=== PATIENT | female | born 1940 | race Native Hawaiian/Other Pacific Islander ===

== ENCOUNTER 2018-06-17 13:19 | Emergency (ER) | payer MEDICARE ==
[2018-06-17 15:14] LABS: BASO # 0.2 K/uL (0.0-0.2); BASO % 1.2 % (0.0-2.0); EOS # 0.1 K/uL (0.0-0.7); EOS % 0.8 % (0.0-4.0); HEMOGLOBIN 14.2 g/dL (11.0-16.0); LYMPH # 2.4 K/uL (1.0-4.3); LYMPH % 17.3 % (20.0-40.0); MEAN CELL VOLUME 96.2 fL (81.0-99.0); MEAN CORPUSCULAR HEMOGLOBIN 32.4 pg (27.0-31.0); MEAN CORPUSCULAR HGB CONC 33.7 g/dL (33.0-37.0); MEAN PLATELET VOLUME 8.7 fL (7.2-11.7); MONO # 1.1 K/uL (0.0-0.8); MONO % 7.8 % (0.0-10.0); NEUT # 9.9 K/uL (1.8-7.0); NEUT % 72.9 % (50.0-75.0); RBC 4.39 Mil/uL (3.80-5.20); WHITE BLOOD COUNT 13.6 K/uL (4.8-10.8)
[2018-06-17 15:32] LABS: ALB/GLOB RATIO 1.2 (1.0-2.1); ALBUMIN 4.6 g/dL (3.5-5.0); ALT/SGPT 31 U/L (9-52); AST/SGOT 32 U/L (14-36); BLOOD UREA NITROGEN 17 mg/dL (7-17); CALCIUM 9.7 mg/dl (8.6-10.4); GFR NON-AFRICAN AMERICAN > 60
--- NOTE | 2018-06-17 15:36 | RAD ---
Date of service: 06/17/2018 PROCEDURE: CHEST RADIOGRAPH, 1 VIEW HISTORY: chest pain COMPARISON: None available. FINDINGS: LUNGS: Clear. PLEURA: No pneumothorax or pleural fluid seen. CARDIOVASCULAR: Normal. OSSEOUS STRUCTURES: No significant abnormalities. VISUALIZED UPPER ABDOMEN: Normal. OTHER FINDINGS: None. IMPRESSION: No active disease.
[2018-06-17 15:43] LABS: B-TYPE NATRIURETIC PEPTIDE 242 pg/mL (0-900)
--- NOTE | 2018-06-17 15:58 | C.PDOC ---
Addendum entered and electronically signed by Maribel Casiano PA 06/20/18 16:55: Addendum Addendum: There is evidence of pneumonia, Patient only took 1 dose of the Zithromax. Patient is tolerating PO well and has normal O2 sat. Patient is able to be discharged home with antibiotic and to follow up with Dr. Bedoya within 24-48 hours. On re-exam, the patient reports improvement of symptoms. Lungs are CTA, heart is RRR, abdomen is soft, non-tender and tolerating PO well. Original Note: History Of Present Illness 78-year-old female, presents to the emergency department with complaints of cough ongoing for the past several days. Patient states she was seen by her PMD Dr Bedoya, who did a chest x-ray that revealed pneumonia, resulting in her being sent to ED for further evaluation. Patient denies any chest pain, nausea/vomiting, fever, back pain or any other associated symptoms. No other complaints at this time. Time Seen by Provider: 06/17/18 14:42 Chief Complaint (Nursing): Cough, Cold, Congestion History Per: Patient History/Exam Limitations: no limitations Past Medical History Reviewed: Historical Data, Nursing Documentation, Vital Signs Vital Signs: Last Vital Signs Temp 99.6 F 06/17/18 13:41 Pulse 106 H 06/17/18 13:41 Resp 18 06/17/18 13:41 BP 133/85 06/17/18 13:41 Pulse Ox 95 06/17/18 13:41 Family History: States: No Known Family Hx - Social History Hx Alcohol Use: Yes Hx Substance Use: No - Immunization History Hx Tetanus Toxoid Vaccination: No Hx Influenza Vaccination: No Hx Pneumococcal Vaccination: No Review Of Systems Constitutional: Negative for: Fever Cardiovascular: Negative for: Chest Pain Respiratory: Positive for: Cough. Negative for: Shortness of Breath Gastrointestinal: Negative for: Nausea, Vomiting Skin: Negative for: Rash Physical Exam - Physical Exam Appears: Non-toxic, No Acute Distress Skin: Warm, Dry, No Rash Head: Atraumatic, Normacephalic Eye(s): bilateral: Normal Inspection, PERRL, EOMI Nose: Normal Oral Mucosa: Moist Lips: Normal Appearing Neck: Normal ROM Chest: Symmetrical Cardiovascular: Rhythm Regular, No Murmur Respiratory: Normal Breath Sounds, No Accessory Muscle Use Gastrointestinal/Abdominal: Soft, No Tenderness Back: Normal Inspection Extremity: Normal ROM, No Deformity Neurological/Psych: Oriented x3, Normal Speech ED Course And Treatment - Laboratory Results Result Diagrams: 06/17/18 15:11 06/17/18 15:11 O2 Sat by Pulse Oximetry: 95 Pulse Ox Interpretation: Normal (RA) Disposition - Disposition Referrals: Luis Angel Bedoya MD [Staff Provider] - Disposition: HOME/ ROUTINE Disposition Time: 17:47 Condition: STABLE Additional Instructions: Follow up with Dr. Bedoya within 24-48 hours without fail. return if worsened. Prescriptions: Moxifloxacin [Avelox] 400 mg PO DAILY #10 tab Instructions: Pneumonia, Adult (DC) Forms: [id number] ([place]) - Clinical Impression Clinical Impression: Pneumonia - Scribe Statement The provider has reviewed the documentation as recorded by the Scribe (Abigail Jc) All medical record entries made by the Scribe were at my direction and perso tolu dictated by me. I have reviewed the chart and agree that the record accurately reflects my personal performance of the history, physical exam, medical decision making, and the department course for this patient. I have also personally directed, reviewed, and agree with the discharge instructions and disposition.
--- NOTE | 2018-06-17 16:02 | CT ---
Date of service: 06/17/18 CT chest without IV contrast Indication: chest pain, SOB, ? infiltrate, nodule seen on CXR Technique: Contiguous axial images were obtained through the chest without intravenous contrast enhancement. Sagittal and coronal reconstructions were generated and reviewed. This CT exam was performed using 1 or more of the following dose reduction techniques: Automated exposure control, adjustment of the MAA and/or kV according to patient size, and/or use of iterative reconstruction technique. Radiation dose (DLP): 139.73 MGy-cm. Comparison: Chest x-ray performed 06/17/18 Findings: Probable 7 mm hypodense right inferior pole/isthmus nodule with peripheral calcification (series 4, image 21). The unenhanced mediastinal and hilar vascular structures appear grossly unremarkable. Heart size appears within normal limits. Dense mitral annulus calcification. Coronary artery calcifications. Scattered tree-in-bud like opacities noted bilaterally. Left lower and right lower lobe infiltrates. No pleural effusion. No pneumothorax. 4 mm right middle lobe nodule (series 3, image 47). Small hiatal hernia. Limited visualization of the noncontrast upper abdomen; 16 x 11 mm right adrenal gland hypodense nodule measures approximately 5 HU, consistent with adenoma. 5 mm hyperdense left upper pole renal nodule, indeterminate: considerations include but not limited to hyperdense or hemorrhagic cyst. Osseous demineralization. Degenerative changes. Impression: Left lower and right lower lobe infiltrates. Additional scattered tree-in-bud like opacities noted bilaterally. Correlate clinically for pneumonia/infection 4 mm right middle lobe nodule. If the patient is a smoker or has other risk factors, follow-up CT at 12 months is recommended to document stability. Probable 7 mm hypodense right inferior pole/isthmus nodule with peripheral calcification. Outpatient thyroid ultrasound follow-up suggested. Small hiatal hernia. Limited visualization of the noncontrast upper abdomen: 16 x 11 mm right adrenal gland hypodense nodule measures approximately 5 HU, consistent with adenoma. 5 mm hyperdense left upper pole renal nodule, indeterminate; considerations include but not limited to hyperdense or hemorrhagic cyst.
[2018-06-17 18:26] VITALS: BP 123/81; PULSE 74; RESP 14; TEMP 100; O2SAT 96
--- NOTE | 2018-06-18 16:50 | CARD ---
APPROVED REPORT Date of service: 06/17/2018 EKG Measurement Heart [id number] <Conclusion> Normal sinus rhythm Possible Left atrial enlargement Borderline ECG
== END 2018-06-17 18:29 | disposition home or self-care (01) ==
LOC: C.ER 13:19
DX: J18.9 Pneumonia, unspecified organism (principal)